=== PATIENT | male | born 1960 | race Hispanic/Latino ===

== ENCOUNTER 2019-07-06 13:09 | Outpatient (CLI) | payer OTHER ==
[~2019-07-06 13:09] MED LIST: Magnevist 469MG/ML 20 ML VIAL ONE
--- NOTE | 2019-07-06 15:15 | MRI ---
MRI PELVIS WITH AND WITHOUT CONTRAST: History: C61 prostate cancer. Comparison: None. Findings: Multiplanar multisequence MRI of the pelvis was performed utilizing prostate protocol. The exam was r eviewed on an independent 3-D workstation. The prostate measures 5.1 x 4.2 x 4.9 cm for a volume of 52.77 mL. Peripheral zone: Within the peripheral zone from the mid gland to the apex at 5-6:00 is a 1 x 0.8 x 0 .8 cm T2 hyperintense mass with diffusion restriction. Transitional zone: Circumscribed heterogeneous nodules. No lentiform focus of low T2 signal or diffus ion restriction. Incidental note is made of a prostatic utricle cyst, subcentimeter. Neurovascular bundles: Intact. Prostatic capsule: Intact. Seminal vesicles: Intact. Lymph nodes: No adenopathy. Bones: On the T1 weighted imaging sequence there are no abnormal foci of marrow signal replacement to suggest metastatic disease Incidental note is made of a central annular fissure at L5/S1. Intrapelvic soft tissues: Unremarkable. Impression: 1. PI-RADS Category 4: High (clinically significant prostate cancer is likely to be present). There i s a 1 x 0.8 x 0.8 cm nodule at 5-6:00 extending from the mid gland to the apex of the transitional zone. 2. No evidence for local regional osseous or lymphatic metastatic disease. 3. Intact prostatic capsule and neurovascular bundles. Transcribed Date/Time: 07/06/2019 3:34 PM
== END 2019-07-06 13:10 | disposition home or self-care (01) ==
LOC: TBSIIMAG 13:09
PROVIDERS: ATTEND Urology
DX: C61 Malignant neoplasm of prostate (principal); N40.2 Nodular prostate without lower urinary tract symptoms
CPT/HCPCS: 72197; A9579